=== PATIENT | male | born 1960 | race Caucasian/White ===

== ENCOUNTER 2023-04-21 08:10 | Day surgery (SDC) | payer BC, SELFPAY ==
[2023-04-21] VITALS (12 sets, daily range): BP systolic 131–147; BP diastolic 79–96; PULSE 59–66; RESP 10–18; TEMP 36.3–37.1; O2SAT 99–100; BMI 25.9
--- OUTSIDE RECORDS SUMMARY | 2023-04-21 08:18 | XMS_ITS | Clinical Summary ---
Author Name Unknown Organization [facility] Address [place], [place] [address] Care Team Providers Care Packaging Assembler Name Role Phone Unruly Mendoza MD Primary Care Provider + Allergies Active Allergy Reactions Criticality Noted Date Comments Hymenoptera Allergenic Extract Other - Describe In Comment Field 01/02/2009 Trouble breathing. Medications No known medications Active Problems No known active problems Encounters Date Type Department Care Team Description 04/13/2023 7:55 AM SINK CUTTER Preop Visit [facility] [address] [place] [address] Unruly Mendoza MD Preoperative Exam ([place], rt inguinal hernia, 04/21/23) 04/13/2023 Travel 03/29/2023 3:00 PM SINK CUTTER Office Visit [facility] [address] [place] [address] Cherelle Hernandez MD Consult (Right inguinal hernia) 03/29/2023 8:45 AM SINK CUTTER Office Visit [facility] [address] [place] [address] Unruly Mendoza MD Concerns (Lower rt side groin, lump, x 3 week) 03/29/2023 Travel 01/24/2023 9:53 AM SINK CUTTER - 01/24/2023 11:59 PM SINK CUTTER Hospital Encounter [facility] [address] [place] [address] Pratima Lopez MD Voice hoarseness; Vocal cord paralysis 01/24/2023 Travel from Last 3 Months Immunizations Name Administration Dates Next Due Influenza, IIV3 (Age >=3 years) 12/01/2012 Td (Age >=7 Years) 01/12/2005 Td, Preservative Free (age >= 7 Years) 3,01/12/2005 Tdap 12/01/2012 Zoster (Shingrix-RZV, recombinant) 10/20/2021, Family History Medical History Relation Name Comments Irregular heart beat Brother pacemak er Cancer Father leukemia Heart Disease Father [place] at 64, 66. at 75 non smoker. Good Health Mother of MVA Heart Disease Paternal Uncle father's twi n brother, of MT at 45 Relation Name Status Comments Brother Alive Father Mother Paternal Uncle Social History Tobacco Use Types Packs/Day Years Used Date Smoking Tobacco: Never Smokeless Tobacco: Never Tobacco Cessation:Counseling Given: Yes Alcohol Use Standard Drinks/Week Comments Yes 6 (1 standard drink = 0.6 oz pur e alcohol) 6 drinks per week PHQ-2 Answer Date Recorded PHQ-2 TOTAL SCORE 0 11/16/2022 Social Connections Answer Date Recorded Frequency of Communication with Friends and Fami ly 0 03/29/2023 Financial Resource Strain Answer Date R ecorded Difficulty of Paying Living Expenses 3 03/29/2023 Difficulty of Paying Living Expenses Not on file 03/29/2023 Food Insecurity Answer Date Recorded Worried About Running Out of Food in the Last Ye ar 1 03/29/2023 Transportation Needs Answer Date Record ed Lack of Transportation (Medical) 1 03/29/2023 Housing Stability Answer Date Recorded Unable to Pay for Housing in the Last Year 1 03/29/2023 Sex and Gender Information Value Date Recorded Sex Assigned at Not on file Gender Identity Not on file Sexual Orientation Not on file Obstetrics History Last Filed Vital Signs Vital Sign Reading Time Taken Comments Blood Pressure 117/71 04/13/2023 8:00 AM SINK CUTTER Pulse 60 04/13/2023 8:00 AM SINK CUTTER Temperature 36.8 ??C (98.2 ??F) 04/13/2023 8:00 AM CS T Respiratory Rate 18 05/29/2014 9:51 AM CDT Oxygen Saturation 99% 04/13/2023 8:00 AM SINK CUTTER Inhaled Oxygen Concentration - - Weight 96.8 kg (213 lb 6.4 oz) 04/13/2023 8:00 A M SINK CUTTER Height 185.4 cm (6' 1) 04/13/2023 8:00 AM SINK CUTTER Body Mass Index 28.15 04/13/2023 8:00 AM SINK CUTTER Plan of Treatment Health Maintenance Due Date Last Done Comments COVID-19 vaccine series (#1) 1962 HIV for age 15-65 1977 Hepatitis C screening for age 18-79 1980 Influenza for age 50-64 11/19/2022 12/01/2012 Depression screening for age 12+ 11/17/2023 11/16/2022, 10/20/2021 BMI (ht and wt on same day) for age 18+ 04/13/2024 04/13/2023, 03/29/2023, 12/15/2022, Additional history exists Fecal testing sDNA-FIT (Cologuard) for age 45-75 11/25/2025 11/25/2022 Lipids for age 45-75 04/07/2027 04/07/2022, 04/05/2019, 05/29/2014, Additional history exists Tetanus booster 11/16/2032 11/16/2022, 11/19, 01/12/2005, Additional history exists Tdap Completed 12/01/2012 Zoster (shingles) series for age 50+ Completed 10/20/2021, 04/05/2019 Pneumococcal series for age 6-64 Aged Out No longer eligible based on patient's age to complete this topic Procedures Procedure Name Priority Date/Time Associated Diagnosis Comments EKG 12 LEAD Routine 04/14/2023 9:13 AM SINK CUTTER Pre-op exam NJ READING EKG - NO CHARGE, COMP ONLY Routine 04/14/2023 9:12 AM SINK CUTTER Pre-op exam CBC WITH AUTO DIFFERENTIAL Routine 04/13/2023 7:52 AM SINK CUTTER Pre-op exam CBC WITH AUTO DIFFERENTIAL Routine 04/13/2023 7:52 AM SINK CUTTER Pre-op exam CREATININE,ISTAT Routine 01/24/2023 10:[address] NECK SOFT TISSUE W Routine 01/24/2023 10:16 AM SINK CUTTER Voice hoarseness Vocal cord paralysis from Last 3 Months Results * EKG 12 LEAD (04/14/2023 9:13 AM SINK CUTTER) Unruly Mendoza MD EKG ORD * NJ READING EKG - NO CHARGE, COMP ONLY (04/14/2023 9:12 AM SINK CUTTER) Unruly Mendoza MD PB - PROVIDER RE ADINGS * CBC WITH AUTO DIFFERENTIAL (04/13/2023 7:52 AM SINK CUTTER) WHITE BLOOD COUNT 5.9 4.5 - 11.0 thou/cu mm 04/13/2023 7:57 AM [facility] RED BLOOD COUNT 4.61 4.30 - 5.90 mil/cu mm 04/13/2023 7:57 AM [facility] HEMOGLOBIN 14.3 13.5 - 17.5 g/dL 04/13/2023 7:57 AM [facility] HEMATOCRIT 41.6 37.0 - 53.0 % 04/13/2023 7:57 AM [facility] MCV 90 80 - 100 fL 04/13/2023 7:57 AM [facility] MCH 31.0 26.0 - 34.0 pg 04/13/2023 7:57 AM [facility] MCHC 34.4 32.0 - 36.0 g/dL 04/13/2023 7:57 AM [facility] RDW 13.2 11.5 - 15.5 % 04/13/2023 7:57 AM [facility] PLATELET COUNT 194 140 - 440 thou/cu mm 04/13/2023 7:57 AM [facility] MPV 8.8 6.5 - 11.0 fL 04/13/2023 7:57 AM [facility] % NEUT 55.9 % 04/13/2023 7:57 AM [facility] % LYMPH 33.2 % 04/13/2023 7:57 AM [facility] % MONO 7.9 % 04/13/2023 7:57 AM [facility] % EOS 2.7 % 04/13/2023 7:57 AM SINK CUTTER [facility] % BASO 0.3 % 04/13/2023 7:57 AM [facility] ABSOLUTE NEUTROPHILS 3.3 1.7 - 7.0 thou/cu mm 04/13/2023 7:57 AM SINK CUTTER [facility] ABSOLUTE LYMPHOCYTES 2.0 0.9 - 2.9 thou/cu mm 04/13/2023 7:57 AM SINK CUTTER [facility] ABSOLUTE MONOCYTES 0.5 <0.9 thou/cu mm 04/13/2023 7:57 AM SINK CUTTER [facility] ABSOLUTE EOSINOPHILS 0.2 <0.5 thou/cu mm 04/13/2023 7:57 AM [facility] ABSOLUTE BASOPHILS 0.0 <0.3 thou/cu mm 04/13/2023 7:57 AM [facility] Blood BLOOD SPECIMEN / Unknown Venipuncture / Unknown 04/13/2023 7:52 AM SINK CUTTER 04/13/2023 7:53 AM SINK CUTTER Unruly Mendoza MD HEMATOLOGY [facility] [address] [place] [address], * CREATININE,ISTAT (01/24/2023 10:19 AM SINK CUTTER) CREATININE, POCT 0.90 0.57 - 1.11 mg/dL 01/24/2023 10:21 AM [facility] eGFR >90 >90 mL/min/1.7 3m2 01/24/2023 10:21 AM [facility] Comment:As of 2021, eG FR is calculated by the CKD-EPI creatinine equation without race adjustment. eGFR can be influenced by muscle mass, exercise, and diet. The reported eGFR is an estimation only and is only applicable if the renal function is stable. Blood BLOOD SPECIMEN / Unknown 01/24/2023 10:19 AM SINK CUTTER 01/24/2023 10:21 AM SINK CUTTER Pratima Lopez MD CHEMISTRY [facility] [address] [place], [place] [id number] * CT NECK SOFT TISSUE W (01/24/2023 10:16 AM SINK CUTTER) Anatomical Region Laterality Modality NECK Computed Tomogra phy 01/24/2023 11:0 4 AM SINK CUTTER Impressions 01/24/2023 11:04 AM SINK CUTTER 1. CT evidence of right vocal cord paralysis. 2. Small right neck lipoma posterior and medial to the sternocleidomastoid muscle. 3. No lymphadenopathy. Please note that all CT scans at this facility use dose modulation, iterative reconstruction, and/or weight-based dosing when appropriate to reduce radiation dose to as low as reasonably achievable. Dictated by Jesse Hernandez MD @ 01/24/2023 11:04:49 AM (Electronically Signed) Narrative 01/24/2023 11:04 AM SINK CUTTER For Patients: ??As a result of the Century Cures Act, medical imaging exams and procedure reports are released immediately into your electronic medical record. ??You may view this report before your referring provider. ??If you have questions, please contact your health care provider. INDICATION: Hoarseness. Vocal cord paralysis. TECHNIQUE: CT of the neck soft tissues performed with IV contrast. Contrast: ??100 cc Omnipaque 300. COMPARISON: None available at this institution. FINDINGS: The nasopharynx, oropharynx and hypopharynx appear unremarkable. There is thickening and medialization of the right true vocal fold. Medial station of the arytenoid cartilage. Dilatation of the right laryngeal ventricle. There is an approximate 1.4 x 2.4 x 2.3 cm lipomatous mass within the right neck soft tissues, posterior and medial to the sternocleidomastoid muscle at approximately the C4 level. Internal fat appears similar to the adjacent subcutaneous fat. No suspicious septation or nodular enhancement. The parotid and submandibular glands appear unremarkable. The thyroid gland is normal. No lymphadenopathy identified. The visualized major vascular structures appear intact. The visualized intracranial components appear grossly intact. Visualized orbits and contents appear unremarkable. The paranasal sinuses are clear as visualized. Lung apices are clear. Mild spondylosis of the cervical spine. Procedure Note Jesse Hernandez, - 01/24/2023 For Patients: As a result of the Cures Act, medical imagingexams and procedure reports are released immediately into your electronicmedical record. You may view this report before your referring provider.If you have questions, please contact your health care provider. INDICATION: Hoarseness. Vocal cord paralysis. TECHNIQUE: CT of the neck soft tissues performed with IV contrast. Contrast: 100 cc Omnipaque 300. COMPARISON: None available at this institution. FINDINGS: The nasopharynx, oropharynx and hypopharynx appear unremarkable. There is thickening and medialization of the right true vocal fold. Medialstation of the arytenoid cartilage. Dilatation of the right laryngealventricle. There is an approximate 1.4 x 2.4 x 2.3 cm lipomatous mass within theright neck soft tissues, posterior and medial to the sternocleidomastoidmuscle at approximately the C4 level. Internal fat appears similar to theadjacent subcutaneous fat. No suspicious septation or nodular enhancement. The parotid and submandibular glands appear unremarkable. The thyroidgland is normal. No lymphadenopathy identified. The visualized major vascular structuresappear intact. The visualized intracranial components appear grossly intact. Visualizedorbits and contents appear unremarkable. The paranasal sinuses are clearas visualized. Lung apices are clear. Mild spondylosis of the cervical spine. IMPRESSION: 1. CT evidence of right vocal cord paralysis. 2. Small right neck lipoma posterior and medial to the sternocleidomastoidmuscle. 3. No lymphadenopathy. Please note that all CT scans at this facility use dose modulation,iterative reconstruction, and/or weight-based dosing when appropriate toreduce radiation dose to as low as reasonably achievable. Dictated by Jesse Hrenandez MD @ 01/24/2023 11:04:49 AM (Electronically Signed) Tarik-Javon Lopez MD CT from Last 3 Months Care Teams Packaging Assembler Relationship Specialty Start Date End Date Votel, Unruly Abel MD [address] [place] [address] PCP - General Family Practice 11/16/22
[2023-04-21] MEDS: LACTATED RINGERS 1000 ML 1,000 ML 100 ML IV (08:35)
[2023-04-21] MEDS: SODIUM CHLORIDE 0.9 % (FLUSH) 10 ML SYRINGE IVF (08:58)
--- NOTE | 2023-04-21 09:49 | PM.GSPRC ---
Operative Note Date of procedure: 04/21/23 Pre-op diagnosis: Right inguinal hernia Post-op diagnosis: Same Type of Procedure: Laparoscopic transabdominal right inguinal hernia repair Indications: The patient is a 63-year-old male with a painful right groin bulge. He was found to have a hernia. After discussion of options, he elected to proceed with repair. Procedure Description: After discussing the risks and benefits of the procedure, the patient signed informed consent.? The operative site was marked and the patient was brought to the operating room and placed on the operating table in supine position.? Care was taken to pad the patient's pressure points.?? The patient was then intubated by anesthesia.?? The operative site was then prepped and draped in the usual sterile fashion.? A time-out was then performed. A curvilinear incision was made below the umbilicus. Dissection was carried down to subcutaneous tissue until the anterior rectus fascia was encountered. This was incised off the midline on the right. The rectus muscle fibers were then retracted exposing the posterior fascia. A port with a dissecting balloon was then introduced into the pre-preperitoneal space. This was inflated under direct vision. It appeared as though possibly we were in the peritoneal cavity. The balloon was deflated, removed, and a 10 mm working port was placed. The space was insufflated and a 10 mm 30-degree scope was then advanced into the space. Upon inspection, the peritoneum had torn inferior to the umbilicus and the port was located in the abdomen. After surveying the abdomen and injuring no signs of injury, I elected to repair the hernia in a transabdominal fashion rather than preperitoneal. A 5 mm port was placed in the left lower abdomen as well as an additional 5 mm port in the lower midline. An indirect hernia was noted on the right. There was no hernia noted on the left. I began by making an incision in the peritoneum approximately 5 cm above the hernia defect. This was done with cautery. This was done from the median umbilical ligament, out laterally. Dissection was taken bluntly with care to avoid the epigastric vessels, toward the hernia sac. I began 1st by dissecting out Burton's ligament medially, and ensuring no direct hernia was noted, I turned my attention to reducing the indirect hernia defect. There was a large hernia sac noted here. This was dissected free from the cord structures using a combination of blunt dissection and cautery to small bleeding vessels. Once the sac was completely free, the space was dissected out laterally and inferiorly to ensure the mesh would lay flat without rolling once the peritoneal flap was closed. Once this was done, a piece of Bard 3DMax mesh for the appropriate side was placed into the abdomen. This was positioned with the marker pointed medially. A Tacker was used to attach the mesh medially at Burton's ligament and 1 tack laterally with care to avoid the epigastric vessels and stay above the inguinal ligament. The peritoneal defect was then closed using V lock suture. The ports were removed. The umbilical fascia was closed with 0 Vicryl. The skin incisions were closed with absorbable subcuticular suture. Sterile dressings were then applied. The scrotum was examined to ensure that both testicles were down. Instrument sponge and needle counts were correct at the end of the case. ? The patient was then woken and transported to the recovery area in stable condition. ? The patient tolerated the procedure well. Findings: Large indirect right inguinal hernia. Anesthesia: GETA Surgeon: Cherelle Hernandez MD Estimated blood loss (mL): 5 Condition: stable Disposition: PACU
[2023-04-21] MEDS: CEFAZOLIN 2 GM INJ IVP (10:01)
[2023-04-21] MEDS: BUPIVACAINE 0.25% 30 ML INJECTION (11:30)
--- NOTE | 2023-04-21 11:46 | W.ANESCHARGE ---
Anesthesia Charges Start Date/Time Anesthesia Start Date: 04/21/23 Anesthesia Start Time: 09:38 Stop Date/Time Anesthesia Stop Date: 04/21/23 Anesthesia Stop Time: 11:45
--- NOTE | 2023-04-21 12:30 | W.ANESCHARGE ---
Anesthesia Charges Start Date/Time Anesthesia Start Date: 04/21/23 Anesthesia Start Time: 09:38 Stop Date/Time Anesthesia Stop Date: 04/21/23 Anesthesia Stop Time: 11:45
== END 2023-04-21 13:33 | disposition home or self-care (01) ==
PROVIDERS: PCP Family Medicine; Visit Provider Surgery
PROC: (CPT 49650; principal; 2023-04-21 09:30)
DX: K40.90 Unilateral inguinal hernia, without obstruction or gangrene, not specified as recurrent (principal)
CPT/HCPCS: 49650; 00830; 00840; 00860; C1781; J0665; J0690; J1100; J1885; J2405; J2704; J2710; J3010; J7120